=== PATIENT | female | born 1930 | race Caucasian/White ===

== ENCOUNTER 2016-06-18 07:56 | Day surgery (SDC) | payer OTHER ==
[~2016-06-18] VITALS: Ht 165.1 cm; Wt 85.3 kg
[~2016-06-18 07:56] MED LIST: ALDACTONE25 MG PO; ALLOPURINOL300 MG PO; AMLODIPINE BESYL5 MG PO; ANTIVERT25 MG PO; APRESOLINE100 MG PO; ASPIR-LOW81 MG PO; ASPIRIN; ASPIRIN81 M1 PO; Aldactone PO; Antivert PO; Aspirin E.C. PO; BYSTOLIC10 MG PO; CALCITRIOL0.25 MCG PO; CLARITIN10 M3 PO; CYMBALTA30 MG PO; CYMBALTA60 MG PO; Cymbalta PO; DIOVAN HCT 3201 EACH PO; DIOVAN HCT 81 TABLET PO; DIOVAN80 MG PO; ERGOCALCIF50000 UNIT PO; FUROSEMIDE20 MG PO; GLUCOVANCE 51 TABLET; GLYBURID-METFO1 EAC3 PO; HUMALOG; HUMALOG100 UNIT/1 SC; HUMALOG100 UNIT/2 SC; HYDRALAZINE HC100 MG PO; INDOCIN25 MG PO; ISOSORBIDE DINI30 MG PO; Indocin PO; LANTUS 10100 UNITS/ SC; LANTUS 3 M100 UNITS1 SC; LASIX20 MG PO; LASIX40 MG PO; LEVAQUIN500 MG PO; LEVEMIR; LEVEMIR FL100 UNIT/1 SC; LEVEMIR FL100 UNITS/ SC; LIPITOR10 MG PO; LIPITOR5 MG PO; LOPRESSOR25 MG PO; Lasix PO; MECLIZINE HCL25 M3 PO; METOPROLOL; OXYCODONE HCL5 MG PO; PLAVIX75 MG PO; PREDNISONE20 MG PO; PREVACID30 MG PO; Plavix PO; RENAPLEX PO; RENVELA800 MG PO; RESTASIS 01 DROP/0.4 BOTH EYES; ROXICODONE5 MG PO; SENSIPAR30 MG PO; TOPROL XL200 MG PO; Toprol XL PO; XANAX0.25 MG PO; Xanax PO; ZYLOPRIM300 MG PO; Zyloprim PO; oxyCODONE PO
[2016-06-18 08:38] LABS: POINT-OF-CARE METER ID UU13113696
[2016-06-18 09:55] LABS: METH RESISTANT S AUREUS PCR NEGATIVE (NEGATIVE); PROBE CHECK PASS; SPECIMEN PROCESSING CONTROL PASS
== END 2016-06-18 09:55 | disposition home or self-care (01) ==
LOC: CATH 07:56
PROVIDERS: Surgery
DX: T82.858A Stenosis of other vascular prosthetic devices, implants and grafts, initial encounter (principal); Y83.2 Surgical operation with anastomosis, bypass or graft as the cause of abnormal reaction of the patient, or of later complication, without mention of misadventure at the time of the procedure; I12.0 Hypertensive chronic kidney disease with stage 5 chronic kidney disease or end stage renal disease; E11.22 Type 2 diabetes mellitus with diabetic chronic kidney disease; N18.6 End stage renal disease; Z99.2 Dependence on renal dialysis; M19.90 Unspecified osteoarthritis, unspecified site; E78.5 Hyperlipidemia, unspecified; Z86.73 Personal history of transient ischemic attack (TIA), and cerebral infarction without residual deficits; Z99.81 Dependence on supplemental oxygen; Z79.1 Long term (current) use of non-steroidal anti-inflammatories (NSAID); Z79.02 Long term (current) use of antithrombotics/antiplatelets; Z79.82 Long term (current) use of aspirin
CPT/HCPCS: 82948; 87641; C1725; C1769; C1874; C1894; J1644; J2250; J3010

== ENCOUNTER 2017-04-22 10:52 | Day surgery (SDC) | payer OTHER ==
[~2017-04-22] VITALS: Ht 160 cm; Wt 83.9 kg
[~2017-04-22 10:52] MED LIST changes: +PERCOCET 5/31 TABLET PO; +RENAL VITAMIN0.8 MG PO; -RENAPLEX PO; -ROXICODONE5 MG PO; -SENSIPAR30 MG PO; +SENSIPAR60 MG PO
[2017-04-22 12:04] VITALS: BP 189/76
[2017-04-22 14:39] VITALS: BP 132/91
[2017-04-22 15:20] VITALS: BP 148/66
== END 2017-04-22 15:24 | disposition home or self-care (01) ==
LOC: SDC 10:52
PROVIDERS: Orthopaedic Surgery Hand Surgery
PROC: 01N50ZZ Release Median Nerve, Open Approach (ICD-10-PCS; principal; 2017-04-22)
DX: G56.01 Carpal tunnel syndrome, right upper limb (principal); I12.0 Hypertensive chronic kidney disease with stage 5 chronic kidney disease or end stage renal disease; E11.22 Type 2 diabetes mellitus with diabetic chronic kidney disease; N18.6 End stage renal disease; Z99.2 Dependence on renal dialysis; K21.9 Gastro-esophageal reflux disease without esophagitis; Z79.4 Long term (current) use of insulin; Z79.02 Long term (current) use of antithrombotics/antiplatelets; Z86.73 Personal history of transient ischemic attack (TIA), and cerebral infarction without residual deficits
CPT/HCPCS: 82948; 84132; 87641; J2250; J3010; S0020